=== PATIENT | male | born 1995 | race Two or more races ===

== ENCOUNTER 2016-05-07 13:34 | Emergency (ER) | payer OTHER ==
[~2016-05-07] VITALS: Ht 172.7 cm; Wt 63.5 kg
[2016-05-07] MEDS ORDERED: Naloxone 1mg/ml 2ml IVP ONE ×2 (13:45→14:30)
[2016-05-07 14:00] VITALS: BP 123/70
[2016-05-07 14:07] LABS: EOSINOPHILS % (AUTO) 1.1 % (0.0-3.0); MEAN CORPUSCULAR HGB CONC 34.3 G/DL (32.0-36.0); MEAN CORPUSCULAR VOLUME 93 FL (80-99); MEAN PLATELET VOLUME 6.5 FL (6.5-10.1); MONOCYTES % (AUTO) 6.3 % (1.0-10.0); NEUTROPHILS % (AUTO) 55.5 % (45.0-75.0); PLATELET COUNT 272 K/UL (150-450); RED BLOOD COUNT 4.41 M/UL (4.70-6.10); RED CELL DISTRIBUTION WIDTH 12.2 % (11.6-14.8); WHITE BLOOD COUNT 11.6 K/UL (4.8-10.8)
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
[2016-05-07 14:28] LABS: TROPONIN I < 0.30 ng/mL (<=0.30)
[2016-05-07 14:31] LABS: ACETAMINOPHEN 17 ug/mL (10-30); ALANINE AMINOTRANSFERASE 12 U/L (3-41); ALBUMIN/GLOBULIN RATIO 2.2 (1.0-2.7); ALCOHOL < 10 mg/dL; ANION GAP 16 (5-15); ASPARTATE AMINO TRANSFERASE 15 U/L (5-40); CALCIUM 9.7 mg/dL (8.6-10.2); CARBON DIOXIDE 26 mEQ/L (20-30); CHLORIDE 98 mEQ/L (98-107); GLOMERULAR FILTRATION RATE > 60 mL/min (>60); HEMOLYSIS 6; POTASSIUM 3.5 mEQ/L (3.4-4.9); SODIUM 140 mEQ/L (135-145); TOTAL PROTEIN 6.9 g/dL (6.6-8.7)
[2016-05-07 14:44] LABS: CKMB < 1.5 ng/mL (< 6.7)
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
--- NOTE | 2016-05-07 15:23 | Diagnostic Imaging Report ---
Indication: Shortness of breath Technique: Single portable AP view of the chest. Findings: Comparison: None. The bones and extra pulmonary soft tissues, cardiomediastinal silhouette, pulmonary vasculature and parenchyma, and pleural surfaces are unremarkable. IMPRESSION: Negative portable AP chest.
[2016-05-07 15:24] VITALS: BP 123/70
--- NOTE | 2016-05-10 19:12 | Cardiology Report ---
APPROVED REPORT EKG Measurement Heart [id number] Sinus tachycardia Nonspecific T wave abnormality Abnormal ECG
== END 2016-05-07 15:36 | disposition home or self-care (01) ==
LOC: EDBD 13:34 → EMR 14:55
DX: R41.82 Altered mental status, unspecified (principal); F14.10 Cocaine abuse, uncomplicated; F15.10 Other stimulant abuse, uncomplicated; F12.10 Cannabis abuse, uncomplicated; F11.10 Opioid abuse, uncomplicated; F17.200 Nicotine dependence, unspecified, uncomplicated
CPT/HCPCS: 36415; 70450; 71010; 80053; 80300; 80329; 82550; 82553; 84484; 85025; 93005; 96374; 96375; 99284; J2310

== ENCOUNTER 2017-01-14 23:21 | Emergency (ER) | payer MEDICAID, OTHER ==
[~2017-01-14] VITALS: Ht 167.6 cm; Wt 65.8 kg
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
[2017-01-14 23:30] VITALS: BP 132/78
[2017-01-15 00:15] VITALS: BP 130/76
[2017-01-15 00:40] VITALS: BP 130/76
[2017-01-15 00:54] LABS: EOSINOPHILS % (AUTO) 1.1 % (0.0-3.0); MEAN CORPUSCULAR HEMOGLOBIN 31.8 PG (27.0-31.0); MEAN CORPUSCULAR HGB CONC 33.8 G/DL (32.0-36.0); MEAN CORPUSCULAR VOLUME 94 FL (80-99); MEAN PLATELET VOLUME 6.9 FL (6.5-10.1); MONOCYTES % (AUTO) 4.8 % (1.0-10.0); NEUTROPHILS % (AUTO) 60.1 % (45.0-75.0); PLATELET COUNT 346 K/UL (150-450); RED CELL DISTRIBUTION WIDTH 12.2 % (11.6-14.8); WHITE BLOOD COUNT 13.5 K/UL (4.8-10.8)
[2017-01-15 01:06] LABS: ACETAMINOPHEN < 10 ug/mL (10-30); ALANINE AMINOTRANSFERASE 9 U/L (3-41); ALBUMIN/GLOBULIN RATIO 1.6 (1.0-2.7); ALCOHOL < 10 mg/dL; ANION GAP 12 (5-15); ASPARTATE AMINO TRANSFERASE 15 U/L (5-40); CALCIUM 10.2 mg/dL (8.6-10.2); CARBON DIOXIDE 30 mEQ/L (20-30); CHLORIDE 101 mEQ/L (98-107); GLOMERULAR FILTRATION RATE > 60 mL/min (>60); HEMOLYSIS 29; POTASSIUM 3.7 mEQ/L (3.4-4.9); SODIUM 143 mEQ/L (135-145); TOTAL PROTEIN 7.7 g/dL (6.6-8.7)
== END 2017-01-15 00:40 | disposition left against medical advice (07) ==
LOC: EDBD 23:21 → EMR 23:59
DX: T40.2X1A Poisoning by other opioids, accidental (unintentional), initial encounter (principal); R41.82 Altered mental status, unspecified; Y92.511 Restaurant or cafe as the place of occurrence of the external cause; R53.83 Other fatigue; G89.29 Other chronic pain
CPT/HCPCS: 36415; 80053; 80300; 80329; 85025; 99284

== ENCOUNTER 2018-02-20 18:11 | Emergency (ER) | payer MEDICAID ==
[~2018-02-20] VITALS: Ht 185.4 cm; Wt 74.4 kg
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
[2018-02-20] MEDS: Norco 5mg/325mg tab ORAL ONE ×2 (19:15→19:43)
[2018-02-20 21:27] VITALS: BP 116/69
--- NOTE | 2018-02-21 09:51 | Diagnostic Imaging Report ---
Indication: Headache Technique: Contiguous 5 mm thick transaxial imaging of the head obtained in a Siemens Sensation [address] scanner. Soft tissue and bone windows generated. Automatic Exposure Control was utilized. Total Dose length Product (DLP): 1417.[address] Dose Index Volume (CTDIvol): 70.38 mGy Comparison: 05/07/2016 Findings: The size and configuration of the cortical sulci, basal cisterns, and ventricles are within normal limits for age. There is no mass effect, midline shift, or edema identified. There is no evidence of acute hemorrhage or abnormal intra-axial or extra-axial fluid collections. The bones and soft tissues are unremarkable. Right supraorbital surgery has been performed. Metallic artifacts noted within the scalp overlying this region. There is also a left craniotomy. There is no interval change. Impression: No mass effect, edema or acute bleed. Note: There is extensive artifact over the right aspect of the cranial vault due to metal artifact The CT scanner at [facility] is accredited by the [employer] and the scans are performed using dose optimization techniques as appropriate to a performed exam including Automatic Exposure control.
--- NOTE | 2018-02-21 11:30 | Diagnostic Imaging Report ---
Indication: Right-sided chest pain. Trauma Comparison: None Findings: The right sixth and seventh ribs show acute fracture. There is blunting of the right costophrenic angle. There is no pneumothorax. IMPRESSION: Acute fractures of the right sixth and seventh ribs, nondisplaced. Right pleural effusion. Hemothorax not excluded. Correlate clinically.
--- NOTE | 2018-02-21 11:34 | Diagnostic Imaging Report ---
Indication: Knee Pain 3 views of the left knee were obtained. Findings: No acute fracture, malalignment, or joint effusion are identified. Joint space is relatively well-maintained. There is prepatellar soft tissue swelling. Impression: No fracture seen. Prepatellar soft tissue swelling
--- NOTE | 2018-02-21 11:35 | Diagnostic Imaging Report ---
Indication: Foot Pain Comparison: None Findings: 3 views of the right foot were obtained. No acute fractures, malalignment, erosions or periostitis are identified. Soft tissues are unremarkable. Impression: No acute findings.
== END 2018-02-20 21:31 | disposition home or self-care (01) ==
LOC: EDBD 18:11 → EMR 19:22
DX: S91.201A Unspecified open wound of right great toe with damage to nail, initial encounter (principal); S22.41XA Multiple fractures of ribs, right side, initial encounter for closed fracture; Y04.2XXA Assault by strike against or bumped into by another person, initial encounter; Y92.9 Unspecified place or not applicable; S70.212A Abrasion, left hip, initial encounter; S83.92XA Sprain of unspecified site of left knee, initial encounter; J90 Pleural effusion, not elsewhere classified; R51 Headache
CPT/HCPCS: 70450; 99284

== ENCOUNTER 2018-08-25 10:49 | Emergency (ER) | payer MEDICAID, OTHER ==
[~2018-08-25] VITALS: Ht 170.2 cm; Wt 70.3 kg
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
[2018-08-25 11:08] VITALS: BP 116/71
--- NOTE | 2018-08-25 11:15 | NUR ---
ED Nurse Note:skin is intact c/o neck and right shoulder pain
[2018-08-25] MEDS ORDERED: Ammonia Inhalant 0.33mL 1 Amp INH ONE (11:20)
[2018-08-25 11:30] LABS: APPEARANCE,URINE CLEAR; BASOPHILS % (AUTO) 1.1 % (0.0-2.0); BILIRUBIN, URINE NEGATIVE (NEGATIVE); COLOR,URINE PALE YELLOW; EOSINOPHILS % (AUTO) 2.8 % (0.0-3.0); GLUCOSE, URINE (UA) NEGATIVE (NEGATIVE); HEMATOCRIT 40.1 % (42.0-52.0); HEMOGLOBIN 13.3 G/DL (14.2-18.0); KETONES,URINE NEGATIVE (NEGATIVE); LEUKOCYTE ESTERASE ,URINE NEGATIVE (NEGATIVE); LYMPHOCYTES % (AUTO) 29.7 % (20.0-45.0); MEAN CORPUSCULAR VOLUME 92 FL (80-99); MONOCYTES % (AUTO) 8.2 % (1.0-10.0); NEUTROPHILS % (AUTO) 58.2 % (45.0-75.0); NITRITE,URINE NEGATIVE (NEGATIVE); PH,URINE 6 (4.5-8.0); PLATELET COUNT 290 K/UL (150-450); PROTEIN,URINE NEGATIVE (NEGATIVE); RED BLOOD COUNT 4.35 M/UL (4.70-6.10); RED CELL DISTRIBUTION WIDTH 12.1 % (11.6-14.8); UROBILINOGEN,URINE NORMAL MG/DL (0.0-1.0); WHITE BLOOD COUNT 10.7 K/UL (4.8-10.8)
[2018-08-25] MEDS ORDERED: Naloxone 0.4mg/ml Inj IVP ONE (11:30)
[2018-08-25 11:38] LABS: ANION GAP 5 mmol/L (5-15); BLOOD UREA NITROGEN 18 mg/dL (7-18); CALCIUM 9.3 MG/DL (8.5-10.1); CARBON DIOXIDE 34 MMOL/L (21-32); CHLORIDE 105 MMOL/L (98-107); POTASSIUM 4.2 MMOL/L (3.5-5.1); SODIUM 143 MMOL/L (136-145)
[2018-08-25 11:51] LABS: ALANINE AMINOTRANSFERASE 45 U/L (12-78); ALBUMIN 3.6 G/DL (3.4-5.0); ALBUMIN/GLOBULIN RATIO 1.1 (1.0-2.7); ALKALINE PHOSPHATASE 95 U/L (46-116); ASPARTATE AMINO TRANSFERASE 16 U/L (15-37); BILIRUBIN,TOTAL 0.1 MG/DL (0.2-1.0)
--- NOTE | 2018-08-25 11:55 | NUR ---
ED Nurse Note:pt. had CT head done ,given narcan- didn't respond to treatment continue monitor
--- NOTE | 2018-08-25 12:30 | Diagnostic Imaging Report ---
Indication: Headache Technique: Contiguous 5 mm thick transaxial imaging of the head obtained in a Siemens Sensation [address] scanner. Soft tissue and bone windows generated. Automatic Exposure Control was utilized. Total Dose length Product (DLP): 1446.[address] Dose Index Volume (CTDIvol): 70.38 mGy Comparison: 02/20/2018 Findings: The study is limited with regard to evaluation of the part of the right temporal lobe and parietal lobe due to streak artifact from metallic focus in the right temporal scalp region. This was present on the prior occasion as well. The size and configuration of the cortical sulci, basal cisterns, and ventricles are within normal limits for age. There is no mass effect, midline shift, or edema identified. There is no evidence of acute hemorrhage or abnormal intra-axial or extra-axial fluid collections. The bones and soft tissues are unremarkable. Impression: No mass effect, edema or acute bleed. Limitation due to streak artifact as discussed above The CT scanner at [facility] is accredited by the [employer] and the scans are performed using dose optimization techniques as appropriate to a performed exam including Automatic Exposure control.
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
--- NOTE | 2018-08-25 12:39 | Diagnostic Imaging Report ---
Indication: Neck pain. Technique: Continuous helical imaging of the cervical spine was obtained transaxially from the skull base to the upper thoracic spine. 2-D coronal and sagittal reformatted images were obtained. Automatic Exposure Control was utilized. Total Dose length Product (DLP): 394.[address] Dose Index Volume (CTDIvol): 17.41 mGy Comparison: None Findings: There is no evidence of an acute fracture or malalignment. Atlantoaxial alignment appears normal. Height and configuration of the vertebral bodies and intervertebral discs are within normal limits. Uncovertebral joints and facets are unremarkable. There is no soft tissue swelling. Impression: Negative cervical spine CT The CT scanner at [facility] is accredited by the [employer] and the scans are performed using dose optimization techniques as appropriate to a performed exam including Automatic Exposure control.
--- NOTE | 2018-08-25 12:44 | Diagnostic Imaging Report ---
Indication: Trauma Technique: Continuous helical transaxial imaging of the maxillofacial structures obtained without intravenous contrast administration. Coronal 2-D reformats were also obtained. Study obtained in a Siemens sensation [address] Automatic Exposure Control was utilized. Total Dose length Product (DLP): 647.[address] Dose Index Volume (CTDIvol): 28.19 mGy Comparison: None Findings: There is no evidence of an acute fracture. Paranasal sinuses and mastoids are clear. Soft tissues are unremarkable. There is evidence of an old right supraorbital and lateral orbital wall fracture. There is mucosal thickening within the paranasal sinuses especially the maxillary sinuses. There is metallic artifact emanating from the right temporal region lateral to the orbit, which may be retained foreign body or related to prior surgery. There is an old fracture deformity of the zygomatic arch as well. IMPRESSION: No definite evidence of an acute fracture. Evidence of old right orbital fracture as described above. Metallic artifact may be radiopaque foreign body or related to previous surgery in the right extracranial temporal soft tissue. Inflammatory sinus disease The CT scanner at [facility] is accredited by the [employer] and the scans are performed using dose optimization techniques as appropriate to a performed exam including Automatic Exposure control.
[2018-08-25] MEDS ORDERED: Isovue-300 100ml vial INJ PRN (12:45)
[2018-08-25 13:00] VITALS: BP 113/70
--- NOTE | 2018-08-25 13:45 | NUR ---
ED Nurse Note: Family provided address: [id number] [place] [address]
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
--- NOTE | 2018-08-25 14:50 | NUR ---
ED Nurse Note: [facility] form filled out confidential morbidity report and faxed.
--- NOTE | 2018-08-25 15:35 | NUR ---
ED Nurse Note: pt iv d/c and id band removed.
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
[2018-08-25 15:36] VITALS: BP 121/57
== END 2018-08-25 15:35 | disposition home or self-care (01) ==
LOC: EDBD 10:49 → EMR 11:18
DX: F19.10 Other psychoactive substance abuse, uncomplicated (principal); V49.9XXA Car occupant (driver) (passenger) injured in unspecified traffic accident, initial encounter; Y93.9 Activity, unspecified; Y92.410 Unspecified street and highway as the place of occurrence of the external cause; G40.909 Epilepsy, unspecified, not intractable, without status epilepticus; Z79.899 Other long term (current) drug therapy; Z88.6 Allergy status to analgesic agent; J32.9 Chronic sinusitis, unspecified
CPT/HCPCS: 36415; 70450; 70486; 71260; 72125; 74177; 80053; 80307; 80329; 81003; 84443; 85025; 93005; 96374; 99284; J2310; Q9967